=== PATIENT | female | born 1940 | race Caucasian/White ===

== ENCOUNTER → 2022-12-03 | Outpatient (CLI) | payer MEDICARE ==
[~2022-12-03] MED LIST: DENOSUMAB 60 MG/ML 1 ML SYRINGE SQ NR
[2022-12-03 13:56] VITALS: BP 135/84; PULSE 69; RESP 16; TEMP 97.7
== END ==
LOC: PROCWHC3 13:28
PROVIDERS: ATTEND Family Medicine
DX: M81.0 Age-related osteoporosis without current pathological fracture (principal)
CPT/HCPCS: 96372; J0897

== ENCOUNTER → 2023-12-07 | Outpatient (CLI) | payer MEDICARE ==
[2023-12-07] MEDS: DENOSUMAB 60 MG/ML 1 ML SYRINGE SQ NR (09:36)
[2023-12-07 09:42] VITALS: BP 169/79; PULSE 88; RESP 16; TEMP 98.6
== END ==
LOC: PROCWHC3 09:26
PROVIDERS: ATTEND Family Medicine
DX: M81.0 Age-related osteoporosis without current pathological fracture (principal)
CPT/HCPCS: 96372; J0897

== ENCOUNTER → 2024-12-11 | Outpatient (CLI) | payer MEDICARE ==
[2024-12-11 13:36] VITALS: BP 151/75; PULSE 97; RESP 16; TEMP 98.1
[2024-12-11] MEDS: DENOSUMAB 60 MG/ML 1 ML SYRINGE SQ NR (13:36)
== END ==
LOC: PROCWHC3 13:23
PROVIDERS: ATTEND Family Medicine
DX: M81.0 Age-related osteoporosis without current pathological fracture (principal)
CPT/HCPCS: 96372; J0897